=== PATIENT | female | born 1980 | race Caucasian/White ===

== ENCOUNTER 2018-10-10 12:16 | Emergency (ER) | payer BC ==
--- NOTE | 2018-10-10 12:44 | UC ---
Shoulder Pain HPI - HPI Summary HPI Summary: 38 y/o female presents to the urgent care c/o RT shoulder pain and posterior shoulder blade with muscle spasm s/p falling on the ice about 2 weeks ago. Pt reports she slipped on ice and landed on her RT shoulder. Since then she had shoulder pain which has increase with the days. Worse at night if she sleeps on her RT side. She has been taking Ibuprofen/Tylenol PO to alleviate symptoms. Last dose taken was this morning around 0300AM. 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 Pain is spasmodic 6/10 at rest and sharp radiating to the RT upper arm 8/10 w/ movement. Pt denies numbness of tingling sensation over the Rt arm, SOB, chest pain, abdominal pain, N/V/D. LMP: 09/19/2018 . Pt declines test since w/ Hx vasectomy. - History of Current Complaint Chief Complaint: UCUpperExtremity Stated Complaint: SHOULDER INJURY Time Seen by Provider: 10/10/18 12:41 Hx Obtained From: Patient Hx Last Menstrual Period: 09/19/18 Onset/Duration: Gradual Onset, Lasting Weeks - 2 weeks, Still Present, Worse Since - 2 days Timing: Constant Severity Initially: Moderate Severity Currently: Moderate Location Of Pain: Is Discrete @ - RT shoulder, Radiates To - RT upper arm Pain Intensity: 8 Pain Scale Used: 0-10 Numeric Character: Sharp, Spasmodic Aggravating Factor(s): Movement, Lifting, Abduction Alleviating Factor(s): Rest, Ice, OTC Meds Associated Signs And Symptoms: Positive: Negative. Negative: Swelling, Redness , Bruising, Fever, Weakness, Numbness/Tingling Related History: Dominant Hand Right - Risk Factors Non-Orthopedic Risk Factor: Negative DVT Risk Factors: Negative Septic Arthritis Risk Factor: Negative - Allergies/Home Medications Allergies/Adverse Reactions: Allergies Allergy/AdvReac Type Severity Reaction Status Date / Time doxycycline Allergy Headache Verified 10/10/18 12:31 Home Medications: Home Medications Citalopram Hydrobromide [Celexa] 20 mg PO DAILY 10/10/18 [History Confirmed 07/18] Fexofenadine (NF) [Radha (NF)] 60 mg PO DAILY 10/10/18 [History Confirmed 07/18] Ibuprofen 800 mg PO ONCE PRN 10/10/18 [History Confirmed 10/10/18] Levothyroxine TAB* [Synthroid 100 MCG TAB*] 100 mcg PO DAILY 10/10/18 [History Confirmed 10/10/18] Lisdexamfetamine Dimesylate [Vyvanse] 40 mg PO DAILY 10/10/18 [History Confirmed 10/10/18] Losartan TAB* [Cozaar TAB*] 50 mg PO DAILY 10/10/18 [History Confirmed 10/10/18] Pantoprazole TAB (NF) [Protonix TAB (NF)] 40 mg PO DAILY 10/10/18 [History Confirmed 10/10/18] PMH/Surg Hx/FS Hx/Imm Hx Previously Healthy: Yes Endocrine History: Hypothyroidism Cardiovascular History: Hypertension GI/ History: Gastroesophageal Reflux - Surgical History Surgical History: Yes Surgery Procedure, Year, and Place: superficial tumor. appendectomy. sinus surgery x2. cervial conization - Family History Known Family History: Positive: Hypertension, Diabetes - Social History Occupation: Employed Full-time Lives: With Family Alcohol Use: Occasionally Substance Use Type: None Smoking Status (MU): Never Smoked Tobacco Review of Systems All Other Systems Reviewed And Are Negative: Yes Constitutional: Positive: Negative Skin: Positive: Negative Eyes: Positive: Negative ENT: Positive: Negative Respiratory: Positive: Negative Cardiovascular: Positive: Negative Gastrointestinal: Positive: Negative Genitourinary: Positive: Negative Motor: Positive: Negative Neurovascular: Positive: Negative Musculoskeletal: Positive: Decreased ROM - RT shoulder, Other: - RT shoulder pain radiating to the Rt upper arm Neurological: Positive: Negative Psychological: Positive: Negative Is Patient Immunocompromised?: No Physical Exam - Summary Physical Exam Summary: Vital Signs Reviewed: Yes GENERAL: Well-Appearing, No Pain Distress, Well-Nourished obese female w/o any apparent pain distress Eyes: Positive: Conjunctiva Clear - PERRL,EOMI ENT: Positive: Normal ENT inspection, Hearing grossly normal, Pharyngeal erythema - mild, Nasal drainage - clear, Uvula midline Neck: Positive: Supple, Nontender, No Lymphadenopathy Respiratory: Positive: Chest non-tender, Lungs clear, Normal breath sounds, No respiratory distress Cardiovascular: Positive: RRR, No Murmur, Pulses Normal, Brisk Capillary Refill Abdomen Description: Positive: Nontender, No Organomegaly, Soft. Negative: CVA Tenderness (R), CVA Tenderness (L) Bowel Sounds: Positive: Present Musculoskeletal: RT shoulder: The R shoulder is with/without obvious asymmetry or deformity when compared to the L shoulder. NO ecchymosis or bruising, no crepitus. No bony deformity or prominence of humeral head. No erythema, warmth. No Point Tenderness to palpation over the clavicle, or scapula. positive tenderness over Acromioclavicular joint and humeral head with mild swelling, NT to palpation of the bicipital groove . NT to palpation of the muscles of the sternocleidomastoid, pectoralis, biceps/triceps, deltoid, trapezius, . Limited ROM due to pain especially in adduction and abduction.on both passive and active , internal/external rotation, flexion/extension. "empty can and drop arm test unable to perform due to pain. No axillary tenderness or lymphadenopathy. Normal sensation over the deltoid and fingers. Distal motor and neurovascular status is intact. Neurological Exam: Normal Psychological Exam: Normal Skin Exam: Normal Triage Information Reviewed: Yes Vital Signs: Initial Vital Signs Temp 99.6 F 10/10/18 12:25 Pulse 91 10/10/18 12:25 Resp 18 10/10/18 12:25 BP 156/82 10/10/18 12:25 Pulse Ox 100 10/10/18 12:25 Shoulder Course/Dx - Course Course Of Treatment: 38 y/o female presents to the urgent care c/o RT shoulder pain and posterior shoulder blade with muscle spasm s/p falling on the ice about 2 weeks ago. Pt reports she slipped on ice and landed on her RT shoulder. Since then she had shoulder pain which has increase with the days. Worse at night if she sleeps on her RT side. She has been taking Ibuprofen/Tylenol PO to alleviate symptoms. Last dose taken was this morning around 0300AM. 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 Pain is spasmodic 6/10 at rest and sharp radiating to the RT upper arm 8/10 w/ movement. Pt denies numbness of tingling sensation over the Rt arm, SOB, chest pain, abdominal pain, N/V/D. LMP:09/19/2018 . Pt declines test since w/ Hx vasectomy.Hx obtained. Pt given Ibuprofen at the clinic by the nurse to alleviate symptoms and a shoulder sling. RT shoulder X-ray ordered: Impression: small inferior acromoclavicular bone spur observed as per radiologist. Pt also w / muscle spasm around trapezius. Pt's Rx Naproxen PO and Flexeril PO to alleviate symptoms. Shoulder immobilized with a shoulder sling for 2-3 days. Advised to f/u with Orthopedic referral Dr Donohue if not improvement of symptoms in 3 days for further evaluation and treatment. Pt's BP is elevated today advised to decrease salt in diet, monitor BP and f/u with PCP for further management. D/c instructions explained. Pt understood and agreed w/ plan of care. RT shoulder X-ray ordered: Impression: Soft tissue calcification over the humeral head observed, suggestive of calcific tendinopathy. No acute osseous injury observed. Pt's Rx Naproxen PO and Prednisone PO taper dose to alleviate symptoms. Shoulder immobilized with a shoulder sling for 2-3 days. Advised to f/u with PT referral for further evaluation and Orthopedic referral if not improvement of symptoms.D/c instructions explained. Pt understood and agreed w/ plan of care. - Differential Dx/Diagnosis Differential Diagnosis/HQI/PQRI: Contusion, Fracture (Closed), Rotator Cuff Injury, Sprain, Strain, Tendonitis Provider Diagnosis: Right shoulder pain, Bone spur of acromioclavicular joint, Muscle spasm of right shoulder, Uncontrolled hypertension Discharge - Sign-Out/Discharge Documenting (check all that apply): Patient Departure - D/C home All imaging exams completed and their final reports reviewed: Yes - Discharge Plan Condition: Stable Disposition: HOME Prescriptions: Cyclobenzaprine TAB* [Flexeril 10 MG TAB*] 10 mg PO TID PRN #21 tab PRN Reason: Spasms - Muscle Naproxen TAB* [Naprosyn 250 mg TAB*] 500 mg PO BID #30 tab Patient Education Materials: Muscle Spasm (ED), Shoulder Pain (ED) Forms: *Work Release Referrals: Joe Granados PA [Primary Care Provider] - 3 Days Trinity Donohue MD [Medical Doctor] - 3 Days Additional Instructions: 1-Please take medications as directed to alleviate pain and swelling. 2- Please take Flexeril PO to alleviate muscle spasm. Please do not drive while taking medication 3-Please apply ice, keep your shoulder immobilized with the shoulder sling for 3 -4 days and then resume movement slowly 4- Please f/u with Orthopedic Dr Donohue in 3 days if not improvement of symptoms for further evaluation and treatment. 5-Your BP is elevated today. please decrease salt in your diet, monitor BP and if it continues to be elevated please f/u with your PCP for further management. - Billing Disposition and Condition Condition: STABLE Disposition: Home
[2018-10-10] MEDS ORDERED: Ibuprofen TAB* 400 MG PO ONE (13:07)
== END 2018-10-10 14:02 | disposition home or self-care (01) ==
LOC: UCEAST 12:16
DX: M75.81 Other shoulder lesions, right shoulder (principal); M25.511 Pain in right shoulder; M62.838 Other muscle spasm; I10 Essential (primary) hypertension; E03.9 Hypothyroidism, unspecified; K21.9 Gastro-esophageal reflux disease without esophagitis; Z88.1 Allergy status to other antibiotic agents; Z79.899 Other long term (current) drug therapy
CPT/HCPCS: 99203; A9270-GY; G0463